=== PATIENT | male | born 1995 | race Caucasian/White ===

== ENCOUNTER 2023-04-20 18:58 | Emergency (ER) | payer MEDICAID, SELFPAY ==
[2023-04-20 19:23] VITALS: BP 135/84; PULSE 94; RESP 20; TEMP 37.1; O2SAT 100; BMI 19.7
--- NOTE | 2023-04-20 19:25 | ED_ITS ---
HPI - Dental/Oral General Chief complaint: Dental/Oral Stated complaint: Tooth Pain Time Seen by Provider: 04/20/23 19:32 Source: patient Mode of arrival: ambulatory Limitations: no limitations History of Present Illness HPI Narrative: Patient is a 27-year-old male who presents emergency department for evaluation of dental pain/infection. He is currently prescribed clindamycin, does not have an appointment with an oral surgeon until the middle of next month, he is being followed by his dental provider at home in [place]. Pain is persistent, unrelieved with ibuprofen 800 mg. He states approximately 3 weeks ago he had received prescription for oxycodone which did help his pain. Denies fevers, chills, pus-like discharge, neck pain, neck stiffness, chest pain, shortness of breath, difficulty breathing Related Data Previous Rx's Medication Instructions Recorded acetaminophen 500 mg capsule 1,000 mg PO Q6H PRN pain #30 caps 04/20/23 oxycodone 5 mg tablet 5 mg PO Q6H PRN pain #7 tabs 04/20/23 Allergies Allergy/AdvReac Type Severity Reaction Status Date / Time No Known Allergies Allergy Verified 04/20/23 19:57 Review of Systems Review of Systems: Constitutional : No Fever, No Chills, No changes in PO intake, No difficulty speaking,? no recent dental procedure, no heat or cold intolerance while eating, no recent face trauma, ENT/Mouth : Positive dental pain. No swallowing difficulty, no change in voice, No jaw pain, No facial swelling, no drooling, no trismus, no bleeding, no throat swelling, no lacerations, no tongue swelling, gum swelling, Eyes: No Eye Pain, No periorbital Swelling Cardiovascular : No Chest Pain, No SOB Respiratory : No Cough, No Sputum, No Wheezing, No Smoke Exposure, No Dyspnea Gastrointestinal : No Nausea, No Vomiting, No Diarrhea Genitourinary : No Dysuria Musculoskeletal : No Myalgias Skin : No rash, no facial swelling or redness, Neuro : No Weakness, No Numbness, No Headache Yes all other systems are reviewed and are negative [facility] Past Medical History Attestation statement: The following information was validated with the patient. Source: old records reviewed Social History Social History Advance Directives: No Advance Directives Information Provided: Yes Physical Exam Vital Signs: Vital Signs: Last Vital Signs Temp 98.7 F 04/20/23 19:23 Pulse 94 04/20/23 19:23 Resp 20 04/20/23 19:23 BP 135/84 04/20/23 19:23 Pulse Ox 100 04/20/23 19:23 O2 Del Method Room Air 04/20/23 19:23 BMI result Body Mass Index 19.7 Appearance: Alert. Oriented X3. No acute distress. Head: Normal external exam. Normocephalic. Atraumatic. Eyes: PERRLA. EOMI. Conjunctiva and sclera normal. Eyelids normal. ENT: EAC normal. TM's Normal. Pharynx normal. Uvula midline. Moist mucous membranes.? ?No trismus noted.? No drooling noted.? No muffled voice noted. Dentition:? Patient with poor dentition throughout with multiple old fractured teeth with multiple dental caries.? Gingival within normal limits.? No fluctuance.? Not consistent with peritonsillar abscess. Not consistent with dental abscess.? No salivary duct obstruction noted. Neck: Normal inspection. Neck supple. FROM. No adenopathy. Thyroid Normal. No me ningeal signs. No neck mass noted.? Trachea midline. CVS: Normal heart rate and rhythm. Heart sound normal. No murmurs noted. Pulses normal throughout. Respiratory: No respiratory distress. Painless inspiration. Breath sounds normal. No wheezes/rales/rhonchi noted. Chest nontender. ?No accessory muscle usage noted or decreased air movement noted. Back:? Full range of motion noted. Skin: Skin warm and dry.? Normal skin color.? Normal skin turgor. No rashes/lesions/lacerations noted. Extremities: Extremities exhibit normal range of motion.? Extremities nontender. Neuro: Oriented X 3.? No motor deficit.? No sensory deficit.? Reflexes normal. Medical Decision Making Medical Decision Making MDM Narrative: Patient is a 27-year-old male presents emergency department for dental pain, Patient with poor dentition throughout with multiple old fractured teeth with multiple dental caries, no dental abscess is noted upon examination, no apparent gingivitis, not consistent with peritonsillar or retropharyngeal abscess. Patient was advised to continue the use of clindamycin as prescribed by his dentist, discussed pain management including acetaminophen and ibuprofen, advi sed patient will provide an additional course of oxycodone, 2 days worth, until he can follow up with his dentist, advised to contact their office on Saturday. Reviewed worrisome signs and symptoms that would warrant re-evaluation the emergency department. All questions were answered. Stable for discharge. Differential Diagnosis Differential Diagnoses: The differential diagnosis associated with the presentation includes (As noted above) External Record Review External record reviewed: Other (Reviewed [facility]; last received 2 day course 04/13/2023) Tests considered The following testing was considered but not selected: I considered serum labs and CT for evaluation of dental infection/abscess, after obtaining history and physical examination did not feel warranted, these were deferred. Prescription Management I considered prescription management with: Pain Medication Discharge Plan Discharge Clinical Impression: Toothache Patient Disposition: Home, Self-Care Instructions: Toothache (ED) Additional Instructions: As discussed, continue taking the clindamycin as prescribed by your dentist. You will need to contact their office for follow-up. In addition continue contacting the oral surgeon's office to try and obtain a sooner appointment. I have sent a prescription for oxycodone to your pharmacy, this is a narcotic medication and it may make you drowsy. It may be addictive. You should not drive, drink alcohol, or work while taking this medication. Prescriptions: New oxycodone 5 mg tablet 5 mg PO Q6H PRN (Reason: pain) Qty: 7 0RF Rx Instructions: Partial Fill upon patient request. acetaminophen 500 mg capsule 1,000 mg PO Q6H PRN (Reason: pain) Qty: 30 0RF Referrals: Physician,Unknown J [Primary Care Provider] - Interventions: ED Discharge Assessment Last Done: 04/20/23 20:05 Discharge Date/Time: 04/20/23 20:10
== END 2023-04-20 20:10 | disposition home or self-care (01) ==
LOC: HO.ED 19:46
PROVIDERS: Emergency Provider Emergency Medicine
DX: K08.89 Other specified disorders of teeth and supporting structures (principal)
CPT/HCPCS: 99282